=== PATIENT | female | born 1965 | race Caucasian/White ===

== ENCOUNTER 2018-03-23 17:37 | Emergency (ER) | payer OTHER ==
[2018-03-23] MEDS ORDERED: Adacel Vial IM ONE ×2 (18:18→18:26)
[2018-03-23] MEDS ORDERED: KEFLEX 500 MG PO ONE (18:20)
[2018-03-23] MEDS ORDERED: BACTRIM DS TABLET PO STA (18:20)
[2018-03-23] MEDS ORDERED: BACTRIM DS TABLET PO ONE (18:26)
[2018-03-23] MEDS ORDERED: KEFLEX 500 MG ONE (18:26)
--- NOTE | 2018-03-23 18:26 | ERPHSYRPT ---
- History of Present Illness Time Seen by Provider: 03/23/18 18:00 Source: patient Exam Limitations: no limitations Patient Subjective Stated Complaint: pt reports being stung by an insect while walking through high grass yesterday afternoon. reports she has a red raised area that is continually getting larger, pt is concerned it might be a brown recluse bite. Triage Nursing Assessment: pt is aox3, pupils perrl, resps easy and non labored , pt afebrile, radial pulses strong and equal, cap refill < 3 seconds. a red raised area noted to the left calf measuring 7cm x4 cm. skin is intact. a small white area is noted in the center of the wound. pedal pulses are strong and equal. pt sensation is intact. Physician History: Pt states, she sustained an insect bite to her left ankle yesterday at 4 PM, developed increasing redness and itching. She denies fever, chills, throat swelling, difficulty breathing, vomiting, other complaints. Her tetanus status in uncertain. Timing/Duration: yesterday Quality: burning, itchy, painful Severity: moderate Location: extremities (left lateral ankle) Possible Causes: insect bite Modifying Factors: Improves With: other (drawing salve to bite) Associated Symptoms: other (itchy eyes) Allergies/Adverse Reactions: codeine Allergy (Verified 04/25/16 16:52) Home Medications: No Home Meds [No Home Meds] 1 ea UD 04/25/16 [History] Hx Tetanus, Diphtheria Vaccination/Date Given: No Hx Influenza Vaccination/Date Given: No Hx Pneumococcal Vaccination/Date Given: No Immunizations Up to Date: Yes - Review of Systems Constitutional: No Symptoms Skin: Other (insect bite, cellulitis left lateral ankle) All Other Systems: Reviewed and Negative - Past Medical History Pertinent Past Medical History: No Neurological History: No Pertinent History - Past Surgical History Past Surgical History: Yes Female Surgical History: Section Other Surgical History: rt leg fx. nasal surgery - Social History Smoking Status: Current every day smoker Exposure to second hand smoke: No Drug Use: none Patient Lives Alone: No - Female History Hx Last Menstrual Period: joy Hx Now: No - Nursing Vital Signs Nursing Vital Signs: Initial Vital Signs Pulse Rate 78 03/23/18 18:03 Respiratory Rate 20 03/23/18 18:03 Blood Pressure 122/71 03/23/18 18:03 O2 Sat by Pulse Oximetry 98 03/23/18 18:03 Pain Scale Pain Intensity 2 - Physical Exam General Appearance: no apparent distress Eye Exam: eyes nml inspection Ears, Nose, Throat Exam: normal ENT inspection, pharynx normal, moist mucous membranes Neck Exam: normal inspection, non-tender, supple, No mass, No JVD Respiratory Exam: normal breath sounds, lungs clear, airway intact, No chest tenderness Cardiovascular Exam: regular rate/rhythm, normal heart sounds, normal peripheral pulses, capillary refill <2 sec, No murmur Gastrointestinal/Abdomen Exam: soft, normal bowel sounds, No tenderness Back Exam: normal inspection, No CVA tenderness Extremity Exam: normal inspection, No calf tenderness, No pedal edema Neurologic Exam: alert, oriented x 3, normal mood/affect Skin Exam: normal color, warm, dry, other (left lateral ankle: 5-6 cm, irregular redness, small pustule in the center, no discharge, necrosis, other lesions, no fluctuation. ), No rash, No petechiae Lymphatic Exam: No adenopathy SpO2 Interpretation: normal SpO2: 98 Oxygen Delivery: Room Air - Course Nursing assessment & vital signs reviewed: Yes Ordered Tests: Medication Summary Discontinued Medications Generic Name Dose Route Start Last Admin Trade Name Freq PRN Reason Stop Dose Admin Cephalexin HCl 500 mg 03/23/18 18:20 Keflex 500 Mg PO 03/23/18 18:21 STAT ONE Diphtheria/Tetanus/Acell Pertussis 0.5 ml 03/23/18 18:18 Adacel Vial IM 03/23/18 18:19 .ONCE ONE Trimethoprim/Sulfamethoxazole 1 tab 03/23/18 18:20 Bactrim Ds Tablet PO 03/23/18 18:21 STAT STA - Progress Progress: unchanged Progress Note: 03/23/18 18:25 Pt has been stable, no sign of difficulty breathing or severe pain, afebrile. I discussed the plan with her to discharge on antibiotics, and rest x 1-2 days with elevated leg, to apply cold compresses, and return if severe pain, swelling or fever> 102 F, otherwise to follow up with her doctor next week. Counseled pt/family regarding: diagnosis, need for follow-up - Departure Time of Disposition: 18:26 Departure Disposition: Home Clinical Impression: Cellulitis of left ankle Condition: Stable Critical Care Time: No Referrals: DOCTOR,NO FAMILY [Primary Care Provider] - Instructions: Insect Bites and Stings (DC), Cellulitis (Skin Infection), Adult (DC) Additional Instructions: Rest x 1-2 days with elevated leg, apply cold compresses to swelling, return if severe pain, swelling, fever> 102 F, or difficulty breathing! Follow up with your doctor in 2-3 days! Prescriptions: Cephalexin Mh 500 mg [Keflex 500 mg] 500 mg PO Q6H #40 capsule Sulfamethoxazole/Trimethoprim [Bactrim Ds Tablet] 1 each PO BID 10 Days #20 tablet
[2018-03-23 18:59] VITALS: BP 98/60; PULSE 71; O2SAT 97
== END 2018-03-23 18:59 | disposition home or self-care (01) ==
LOC: ED 17:37
DX: L03.116 Cellulitis of left lower limb (principal); W57.XXXA Bitten or stung by nonvenomous insect and other nonvenomous arthropods, initial encounter
CPT/HCPCS: 90471; 90715; 99283; A9270-GY

== ENCOUNTER 2018-09-30 17:32 | Emergency (ER) | payer OTHER ==
[2018-09-30] MEDS ORDERED: BABY ASPIRIN 81 MG CHEW PO ONE (17:43)
--- NOTE | 2018-09-30 17:43 | ERPHSYRPT ---
- History of Present Illness Time Seen by Provider: 09/30/18 17:38 Historian: patient Physician History: 53 y/o white female presents with 2 month h/o central substernal cp radiates to back. worsening. pt has a lot of anxiety issues. not on any meds. did not take asa. pt currently under severe stress and had stress for 15 years. denies soa. denies abd pain. Timing/Duration: intermittent (for 2 months.), worse Location: substernal, central Chest Pain Radiation: back Severity of Pain-Max: moderate Severity of Pain-Current: moderate Modifying Factors: Improves With: nothing, other (did not take any thing) Associated Symptoms: No nausea, No vomiting, No palpitations, No shortness of breath, No hurts to breathe Prior Chest Pain/Cardiac Workup: no prior chest pain Nitro Today/Relief: no nitro taken today, provided by ED Aspirin Treatment Today: no aspirin today, provided by ED Allergies/Adverse Reactions: codeine Allergy (Verified 09/30/18 18:34) Home Medications: No Reportable Medications [No Reported Medications] 09/30/18 [History] Hx Tetanus, Diphtheria Vaccination/Date Given: No Hx Influenza Vaccination/Date Given: No Hx Pneumococcal Vaccination/Date Given: No - Review of Systems Constitutional: No Symptoms Eyes: No Symptoms Ears, Nose, & Throat: No Symptoms Respiratory: No Symptoms, No Cough, No Dyspnea, No Stridor, No Wheezing Cardiac: Chest Pain, No Palpitations, No Syncope Abdominal/Gastrointestinal: No Symptoms Genitourinary Symptoms: No Symptoms Musculoskeletal: No Symptoms Skin: No Symptoms Neurological: No Symptoms Psychological: Anxiety Endocrine: No Symptoms Hematologic/Lymphatic: No Symptoms Immunological/Allergic: No Symptoms All Other Systems: Reviewed and Negative - Past Medical History Pertinent Past Medical History: Yes Neurological History: No Pertinent History ENT History: No Pertinent History Cardiac History: No Pertinent History Respiratory History: No Pertinent History Endocrine Medical History: No Pertinent History Musculoskeletal History: No Pertinent History GI Medical History: No Pertinent History History: No Pertinent History Psycho-Social History: No Pertinent History Female Reproductive Disorders: No Pertinent History - Past Surgical History Past Surgical History: Yes Neuro Surgical History: No Pertinent History Cardiac: No Pertinent History Respiratory: No Pertinent History Gastrointestinal: No Pertinent History Genitourinary: No Pertinent History Musculoskeletal: No Pertinent History Female Surgical History: Section Other Surgical History: rt leg fx. nasal surgery - Social History Smoking Status: Current every day smoker Exposure to second hand smoke: No Drug Use: none Patient Lives Alone: No - Nursing Vital Signs Nursing Vital Signs: Initial Vital Signs Temperature 97.9 F 09/30/18 17:44 Pulse Rate 72 09/30/18 17:44 Respiratory Rate 16 09/30/18 17:44 Blood Pressure 115/71 09/30/18 17:44 O2 Sat by Pulse Oximetry 100 09/30/18 17:44 Pain Scale Pain Intensity 8 - Physical Exam General Appearance: mild distress, alert, anxiety Eye Exam: PERRL/EOMI Ears, Nose, Throat Exam: normal ENT inspection, moist mucous membranes Neck Exam: normal inspection, non-tender, supple, full range of motion Respiratory Exam: normal breath sounds, chest tenderness, lungs clear, airway intact, No respiratory distress, No accessory muscle use, No rhonchi, No wheezing, No stridor Cardiovascular Exam: regular rate/rhythm, normal heart sounds, normal peripheral pulses Gastrointestinal/Abdomen Exam: soft, normal bowel sounds, No tenderness, No guarding, No rebound Pelvic Exam: not done Rectal Exam: not done Back Exam: normal inspection, normal range of motion, No CVA tenderness, No vertebral tenderness Extremity Exam: normal inspection, normal range of motion, pelvis stable Neurologic Exam: alert, oriented x 3, cooperative, 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 Skin Exam: normal color, warm, dry Lymphatic Exam: No adenopathy SpO2 Interpretation: normal - Course Nursing assessment & vital signs reviewed: Yes EKG Interpreted by Me: RATE (67), Sinus Rhythm, NORMAL AXIS, NORMAL INTERVALS, NORMAL QRS, NORMAL ST-T, Other (no comparison ekg) Ordered Tests: Active Orders 24 hr Category Date Time Status Marketing Communications Coordinator STAT Care 09/30/18 17:45 Active EKG-ER Only STAT Care 09/30/18 17:43 Active IV Insertion STAT Care 09/30/18 17:43 Active Pulse Oximetry (ED) STAT Care 09/30/18 17:43 Active CHEST 1 VIEW (PORTABLE) Stat Exams 09/30/18 17:45 Taken CBC W DIFF Stat Lab 09/30/18 17:40 Completed CMP Stat Lab 09/30/18 17:40 Completed D-DIMER QUANTITATION Stat Lab 09/30/18 17:40 Completed NT PRO BNP Stat Lab 09/30/18 17:40 Completed PROTIME WITH INR Stat Lab 09/30/18 17:40 Completed TROPONIN Q3H Lab 09/30/18 17:40 Completed TROPONIN Q3H Lab 09/30/18 20:45 Ordered TROPONIN Q3H Lab 09/30/18 23:45 Ordered TROPONIN Q3H Lab 10/01/18 02:45 Ordered TROPONIN Q3H Lab 10/01/18 05:45 Ordered Medication Summary Discontinued Medications Generic Name Dose Route Start Last Admin Trade Name Mat PRN Reason Stop Dose Admin Aspirin 324 mg 09/30/18 17:43 09/30/18 17:55 Baby Aspirin 81 Mg Chew PO 09/30/18 17:44 324 mg STAT ONE Administration Lab/Rad Data: Laboratory Result Diagrams 09/30/18 17:40 09/30/18 17:40 Laboratory Results 09/30/18 09/30/18 09/30/18 Range/Units 17:40 17:40 17:40 WBC (4.0-10.5) K/mm3 RBC (4.1-5.4) M/mm3 Hgb (12.0-16.0) gm/dl Hct (35-47) % MCV (78-100) fl MCH (26-32) pg MCHC (32-36) g/dl RDW (11.5-14.0) % Plt Count (150-450) K/mm3 MPV (6-9.5) fl Gran % (36.0-66.0) % Eos # (Auto) (0-0.5) Absolute Lymphs (auto) (1.0-4.6) Absolute Monos (auto) (0.0-1.3) Lymphocytes % (24.0-44.0) % Monocytes % (0.0-12.0) % Eosinophils % (0.00-5.0) % Basophils % (0.0-0.4) % Absolute Granulocytes (1.4-6.9) Basophils # (0-0.4) PT 11.2 (9.95-12.35) SECONDS INR 0.96 (0.8-3.0) D-Dimer < 215 L (215-500) ng/mL Sodium 143 (137-145) mmol/L Potassium 3.7 (3.5-5.1) mmol/L Chloride 104 (98-107) mmol/L Carbon Dioxide 30 (22-30) mmol/L Anion Gap 12.4 (5-15) MEQ/L BUN 17 (7-17) mg/dL Creatinine 0.87 (0.52-1.04) mg/dL Estimated GFR > 60.0 ML/MIN Glucose 85 (74-106) mg/dL Calcium 9.7 (8.4-10.2) mg/dL Total Bilirubin 0.40 (0.2-1.3) mg/dL AST 21 (14-36) U/L ALT 22 (0-35) U/L Alkaline Phosphatase 63 (38-126) U/L Troponin I < 0.012 (0.000-0.034) ng/mL NT-Pro-B Natriuret Pep 18.0 (0-900) pg/mL Serum Total Protein 7.5 (6.3-8.2) g/dL Albumin 4.6 (3.5-5.0) g/dL 09/30/18 Range/Units 17:40 WBC 7.3 (4.0-10.5) K/mm3 RBC 5.25 (4.1-5.4) M/mm3 Hgb 15.3 (12.0-16.0) gm/dl Hct 47.4 H (35-47) % MCV 90.3 (78-100) fl MCH 29.1 (26-32) pg MCHC 32.3 (32-36) g/dl RDW 13.7 (11.5-14.0) % Plt Count 224 (150-450) K/mm3 MPV 11.4 H (6-9.5) fl Gran % 57.6 (36.0-66.0) % Eos # (Auto) 0.27 (0-0.5) Absolute Lymphs (auto) 2.26 (1.0-4.6) Absolute Monos (auto) 0.50 (0.0-1.3) Lymphocytes % 31.1 (24.0-44.0) % Monocytes % 6.9 (0.0-12.0) % Eosinophils % 3.7 (0.00-5.0) % Basophils % 0.7 (0.0-0.4) % Absolute Granulocytes 4.18 (1.4-6.9) Basophils # 0.05 (0-0.4) PT (9.95-12.35) SECONDS INR (0.8-3.0) D-Dimer (215-500) ng/mL Sodium (137-145) mmol/L Potassium (3.5-5.1) mmol/L Chloride (98-107) mmol/L Carbon Dioxide (22-30) mmol/L Anion Gap (5-15) MEQ/L BUN (7-17) mg/dL Creatinine (0.52-1.04) mg/dL Estimated GFR ML/MIN Glucose (74-106) mg/dL Calcium (8.4-10.2) mg/dL Total Bilirubin (0.2-1.3) mg/dL AST (14-36) U/L ALT (0-35) U/L Alkaline Phosphatase (38-126) U/L Troponin I (0.000-0.034) ng/mL NT-Pro-B Natriuret Pep (0-900) pg/mL Serum Total Protein (6.3-8.2) g/dL Albumin (3.5-5.0) g/dL - Progress Progress: unchanged Air Movement: good Progress Note: 09/30/18 19:09 cxr-no acute process. Blood Culture(s) Obtained: No Antibiotics given: No Counseled pt/family regarding: lab results, diagnosis, need for follow-up, rad results - Departure Time of Disposition: 19:10 Departure Disposition: Home Clinical Impression: Chest pain, Anxiety, Stress Condition: Stable Critical Care Time: No Referrals: DOCTOR,NO FAMILY [Primary Care Provider] - Additional Instructions: follow up with primary doctor for further management of your anxiety/stress issues and chest pain issues.
[2018-09-30 18:00] LABS: BASOPHIL % 0.7 % (0.0-0.4); Basophil (Absolute #) 0.05 (0-0.4); Eosinophil % 3.7 % (0.00-5.0); Eosinophil (Absolute #) 0.27 (0-0.5); Granulocyte Absolute (ANC) 4.18 (1.4-6.9); Granulocytes % 57.6 % (36.0-66.0); Hematocrit 47.4 % (35-47); Hemoglobin 15.3 gm/dl (12.0-16.0); Lymphocyte (Absolute #) 2.26 (1.0-4.6); Lymphocytes % 31.1 % (24.0-44.0); Mean Cell Volume 90.3 fl (78-100); Mean Corpuscular Hemoglobin 29.1 pg (26-32); Mean Corpuscular Hgb Concent. 32.3 g/dl (32-36); Mean Platelet Volume 11.4 fl (6-9.5); Monocytes % 6.9 % (0.0-12.0); Platelet Count 224 K/mm3 (150-450); Red Blood Count 5.25 M/mm3 (4.1-5.4); Red Cell Distribution Width 13.7 % (11.5-14.0); White Blood Count 7.3 K/mm3 (4.0-10.5)
[2018-09-30 18:12] LABS: INR 0.96 (0.8-3.0)
[2018-09-30 18:23] LABS: D-DIMER QUANTITATION < 215 ng/mL (215-500)
[2018-09-30 18:26] LABS: ALBUMIN 4.6 g/dL (3.5-5.0); ALKALINE PHOSPHATASE 63 U/L (38-126); ANION GAP 12.4 MEQ/L (5-15); BLOOD UREA NITROGEN 17 mg/dL (7-17); CHLORIDE 104 mmol/L (98-107); Calcium 9.7 mg/dL (8.4-10.2); Carbon Dioxide 30 mmol/L (22-30); Creatinine 1 0.87 mg/dL (0.52-1.04); Glucose 85 mg/dL (74-106); Potassium 3.7 mmol/L (3.5-5.1); SGOT/AST 21 U/L (14-36); SGPT/ALT 22 U/L (0-35); SODIUM 143 mmol/L (137-145); Total Protein 7.5 g/dL (6.3-8.2)
[2018-09-30 19:20] VITALS: BP 97/63; PULSE 63; O2SAT 99
--- NOTE | 2018-09-30 22:21 | XRAY ---
Indication: Chest pain. Comparison: None Portable chest demonstrates normal heart and lungs with a few incidental calcified granulomas. Bony thorax intact with mild degenerative changes. Nothing acute.
== END 2018-09-30 19:24 | disposition home or self-care (01) ==
LOC: ED 17:32
DX: R07.9 Chest pain, unspecified (principal); F41.9 Anxiety disorder, unspecified; Z73.3 Stress, not elsewhere classified
CPT/HCPCS: 36000; 36415; 71045; 80053; 83880; 84484; 85025; 85379; 85610; 93005; 93041; 99284; A9270-GY

== ENCOUNTER 2019-03-28 01:59 | Emergency (ER) | payer MEDICAID, OTHER ==
[2019-03-28] MEDS ORDERED: Sodium Chloride 0.9% 1000 ML 1,000 ML IV STA (02:36)
[2019-03-28] MEDS ORDERED: TORAdol 30 mg Injection IV ONE (02:36)
[2019-03-28] MEDS ORDERED: TORAdol 30 mg Injection ONE (02:40)
[2019-03-28] MEDS ORDERED: Sodium Chloride 0.9% 1000 ML 1,000 ML ONE (02:40)
--- NOTE | 2019-03-28 02:41 | ERPHSYRPT ---
- History of Present Illness Time Seen by Provider: 03/28/19 02:28 Source: patient Exam Limitations: no limitations Patient Subjective Stated Complaint: pt c/o Left flank pain X1 week, 8/10 states has not noticed any changes in urine or elimination. states diffuse pain across lower abdomen. states also nauseous but no vomiting. 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 Triage Nursing Assessment: A/O x4, speech clear, c/o pain 8/10 in left lower back/flank area. pt presents with slight stiff posture. resp easy, lungs CTA. has not taken any medication [employer] Physician History: 54-year-old white female with history of kidney stones in the past she is here complaining of pain in her left flank described as sharp stabbing symptoms going on for a week she denies any dysuria hematuria She also states that she has pain in her left shoulder worse with moving she states that she was lifting something heavy 3 weeks ago and she has been having pain in that area. She has no fevers no nausea no vomiting. Past medical history includes kidney stones past surgical history includes kidney stones removed and ORIF of the right leg. . Timing/Duration: other (left shoulder pain for 3 weeks, left flank pain for one week) Severity: moderate Modifying Factors: Improves With: other (shoulders worse with movement) Associated Symptoms: No nausea, No vomiting, No abdominal pain, No shortness of breath, No heartburn, No diaphoresis, No cough, No chills, No chest pain, No fever, No headaches, No loss of appetite, No malaise, No rash, No syncope, No seizure, No weakness Allergies/Adverse Reactions: codeine Allergy (Verified 09/30/18 18:34) Hx Tetanus, Diphtheria Vaccination/Date Given: Yes Hx Influenza Vaccination/Date Given: No Hx Pneumococcal Vaccination/Date Given: No Immunizations Up to Date: Yes - Review of Systems Constitutional: No Fever, No Chills Eyes: No Symptoms Ears, Nose, & Throat: No Symptoms Respiratory: No Cough, No Dyspnea Cardiac: No Chest Pain, No Edema, No Syncope Abdominal/Gastrointestinal: No Abdominal Pain, No Nausea, No Vomiting, No Diarrhea Genitourinary Symptoms: Flank Pain (left flank pain) Musculoskeletal: Injury (patient states she injured her left shoulder lifting something 3 weeks ago), Other (left shoulder pain worse with movement) Skin: No Rash Neurological: No Dizziness, No Focal Weakness, No Sensory Changes Psychological: No Symptoms Endocrine: No Symptoms All Other Systems: Reviewed and Negative - Past Medical History Pertinent Past Medical History: Yes Neurological History: No Pertinent History ENT History: No Pertinent History Cardiac History: No Pertinent History Respiratory History: No Pertinent History Endocrine Medical History: No Pertinent History Musculoskeletal History: No Pertinent History GI Medical History: No Pertinent History History: No Pertinent History Psycho-Social History: No Pertinent History Female Reproductive Disorders: No Pertinent History Other Medical History: KIDNEY STONES - Past Surgical History Past Surgical History: Yes Neuro Surgical History: No Pertinent History Cardiac: No Pertinent History Respiratory: No Pertinent History Gastrointestinal: No Pertinent History Genitourinary: No Pertinent History Musculoskeletal: No Pertinent History Female Surgical History: Section Other Surgical History: rt leg fx. nasal surgery - Social History Smoking Status: Current every day smoker How long have you smoked: 40 Exposure to second hand smoke: No Drug Use: none Patient Lives Alone: No - Female History Hx Last Menstrual Period: menopause Hx Now: No - Nursing Vital Signs Nursing Vital Signs: Initial Vital Signs Temperature 98.3 F 03/28/19 02:00 Pulse Rate 66 03/28/19 02:00 Respiratory Rate 16 03/28/19 02:00 Blood Pressure 126/73 03/28/19 02:00 O2 Sat by Pulse Oximetry 100 03/28/19 02:00 Pain Scale Pain Intensity 4 - Physical Exam General Appearance: mild distress, alert Eye Exam: PERRL/EOMI, eyes nml inspection Ears, Nose, Throat Exam: normal ENT inspection, TMs normal, pharynx normal, moist mucous membranes Neck Exam: normal inspection, non-tender, supple, full range of motion Respiratory Exam: normal breath sounds, lungs clear, No respiratory distress Cardiovascular Exam: regular rate/rhythm, normal heart sounds, normal peripheral pulses, capillary refill <2 sec Gastrointestinal/Abdomen Exam: soft, normal bowel sounds, No tenderness Back Exam: CVA tenderness (left flank tenderness) Extremity Exam: other (pain left anterior shoulder with external rotation able to touch her opposite shoulder anteriorly) Neurologic Exam: alert, oriented x 3, cooperative, reporting consultant II-XII nml as tested, normal mood/affect, nml cerebellar function, nml station & gait, sensation nml, No motor deficits Skin Exam: normal color, warm, dry, No rash Lymphatic Exam: No adenopathy SpO2 Interpretation: normal (100%) SpO2: 100 - Course Nursing assessment & vital signs reviewed: Yes - Radiology Exams Left Shoulder X-ray Interpretation: Interpreted by me, Negative, No Fracture, No Subluxation - CT Exams Abdomen/Pelvis CT Interpretation: Tele-radiologist Report (no urolithiasis) Ordered Tests: Active Orders 24 hr Category Date Time Status IV Insertion STAT Care 03/28/19 02:36 Active ABDOMEN AND PELVIS W/0 CONTRAS [CT] Stat Exams 03/28/19 03:42 Taken SHOULDER Stat Exams 03/28/19 03:43 Taken CBC W DIFF Stat Lab 03/28/19 02:46 Completed CMP Stat Lab 03/28/19 02:46 Completed HCG QUALITATIVE,SERUM Stat Lab 03/28/19 02:46 Completed UA W/RFX UR CULTURE Stat Lab 03/28/19 03:45 Completed Urine Triage Profile Stat Lab 03/28/19 03:45 Completed Medication Summary Discontinued Medications Generic Name Dose Route Start Last Admin Trade Name Sauloq PRN Reason Stop Dose Admin Sodium Chloride 1,000 mls @ 999 mls/hr 03/28/19 02:36 03/28/19 04:31 Sodium Chloride 0.9% 1000 Ml IV 03/28/19 03:36 Infused .Q1H1M STA Infusion Sodium Chloride Confirm 03/28/19 02:40 Sodium Chloride 0.9% 1000 Ml Administered 03/28/19 02:41 Dose 1,000 mls @ ud .ROUTE .STK-MED ONE Ketorolac Tromethamine 30 mg 03/28/19 02:36 03/28/19 02:45 Toradol 30 Mg Injection IV 03/28/19 02:37 30 mg STAT ONE Administration Ketorolac Tromethamine Confirm 03/28/19 02:40 Toradol 30 Mg Injection Administered 03/28/19 02:41 Dose 30 mg .ROUTE .STK-MED ONE Lab/Rad Data: Laboratory Result Diagrams 03/28/19 02:46 03/28/19 02:46 Laboratory Results 03/28/19 03/28/19 03/28/19 Range/Units 03:45 03:45 02:46 WBC (4.0-10.5) K/mm3 RBC (4.1-5.4) M/mm3 Hgb (12.0-16.0) gm/dl Hct (35-47) % MCV (78-100) fl MCH (26-32) pg MCHC (32-36) g/dl RDW (11.5-14.0) % Plt Count (150-450) K/mm3 MPV (6-9.5) fl Gran % (36.0-66.0) % Eos # (Auto) (0-0.5) Absolute Lymphs (auto) (1.0-4.6) Absolute Monos (auto) (0.0-1.3) Lymphocytes % (24.0-44.0) % Monocytes % (0.0-12.0) % Eosinophils % (0.00-5.0) % Basophils % (0.0-0.4) % Absolute Granulocytes (1.4-6.9) Basophils # (0-0.4) Sodium (137-145) mmol/L Potassium (3.5-5.1) mmol/L Chloride (98-107) mmol/L Carbon Dioxide (22-30) mmol/L Anion Gap (5-15) MEQ/L BUN (7-17) mg/dL Creatinine (0.52-1.04) mg/dL Estimated GFR ML/MIN Glucose (74-106) mg/dL Calcium (8.4-10.2) mg/dL Total Bilirubin (0.2-1.3) mg/dL AST (14-36) U/L ALT (0-35) U/L Alkaline Phosphatase (38-126) U/L Serum Total Protein (6.3-8.2) g/dL Albumin (3.5-5.0) g/dL Serum , Qual NEGATIVE (Negative) Urine Color YELLOW (YELLOW) Urine Appearance CLEAR (CLEAR) Urine pH 5.0 (5-6) Ur Specific [place] 1.019 (1.005-1.025) Urine Protein NEGATIVE (Negative) Urine Ketones NEGATIVE (NEGATIVE) Urine Blood NEGATIVE (0-5) El/ul Urine Nitrite NEGATIVE (NEGATIVE) Urine Bilirubin NEGATIVE (NEGATIVE) Urine Urobilinogen NEGATIVE (0-1) mg/dL Ur Leukocyte Esterase NEGATIVE (NEGATIVE) Urine WBC (Auto) 6-10 (0-5) /HPF Urine RBC (Auto) NONE SEEN (0-2) /HPF U Epithel Cells (Auto) RARE (FEW) /HPF Urine Bacteria (Auto) NONE SEEN (NEGATIVE) /HPF Calcium Oxalate Crystal 0-2 (NEGATIVE) /HPF Urine Mucus (Auto) SLIGHT (NEGATIVE) /HPF Urine Culture Reflexed NO (NO) Urine Glucose NEGATIVE (NEGATIVE) mg/dL Urine Opiates Level NEGATIVE (NEGATIVE) Ur Methadone NEGATIVE (NEGATIVE) Urine Barbiturates NEGATIVE (NEGATIVE) Ur Phencyclidine (PCP) NEGATIVE (NEGATIVE) Urine Amphetamine NEGATIVE (NEGATIVE) U Benzodiazepine Level NEGATIVE (NEGATIVE) Urine Cocaine NEGATIVE (NEGATIVE) Urine Marijuana (THC) NEGATIVE (NEGATIVE) 03/28/19 03/28/19 Range/Units 02:46 02:46 WBC 7.1 (4.0-10.5) K/mm3 RBC 5.08 (4.1-5.4) M/mm3 Hgb 15.0 (12.0-16.0) gm/dl Hct 45.6 (35-47) % MCV 89.8 (78-100) fl MCH 29.5 (26-32) pg MCHC 32.9 (32-36) g/dl RDW 13.9 (11.5-14.0) % Plt Count 235 (150-450) K/mm3 MPV 11.1 H (6-9.5) fl Gran % 59.4 (36.0-66.0) % Eos # (Auto) 0.26 (0-0.5) Absolute Lymphs (auto) 1.87 (1.0-4.6) Absolute Monos (auto) 0.70 (0.0-1.3) Lymphocytes % 26.4 (24.0-44.0) % Monocytes % 9.9 (0.0-12.0) % Eosinophils % 3.7 (0.00-5.0) % Basophils % 0.6 (0.0-0.4) % Absolute Granulocytes 4.22 (1.4-6.9) Basophils # 0.04 (0-0.4) Sodium 142 (137-145) mmol/L Potassium 4.0 (3.5-5.1) mmol/L Chloride 106 (98-107) mmol/L Carbon Dioxide 29 (22-30) mmol/L Anion Gap 10.6 (5-15) MEQ/L BUN 16 (7-17) mg/dL Creatinine 0.71 (0.52-1.04) mg/dL Estimated GFR > 60.0 ML/MIN Glucose 106 (74-106) mg/dL Calcium 9.7 (8.4-10.2) mg/dL Total Bilirubin 0.50 (0.2-1.3) mg/dL AST 26 (14-36) U/L ALT 20 (0-35) U/L Alkaline Phosphatase 65 (38-126) U/L Serum Total Protein 7.1 (6.3-8.2) g/dL Albumin 4.2 (3.5-5.0) g/dL Serum , Qual (Negative) Urine Color (YELLOW) Urine Appearance (CLEAR) Urine pH (5-6) Ur Specific [place] (1.005-1.025) Urine Protein (Negative) Urine Ketones (NEGATIVE) Urine Blood (0-5) El/ul Urine Nitrite (NEGATIVE) Urine Bilirubin (NEGATIVE) Urine Urobilinogen (0-1) mg/dL Ur Leukocyte Esterase (NEGATIVE) Urine WBC (Auto) (0-5) /HPF Urine RBC (Auto) (0-2) /HPF U Epithel Cells (Auto) (FEW) /HPF Urine Bacteria (Auto) (NEGATIVE) /HPF Calcium Oxalate Crystal (NEGATIVE) /HPF Urine Mucus (Auto) (NEGATIVE) /HPF Urine Culture Reflexed (NO) Urine Glucose (NEGATIVE) mg/dL Urine Opiates Level (NEGATIVE) Ur Methadone (NEGATIVE) Urine Barbiturates (NEGATIVE) Ur Phencyclidine (PCP) (NEGATIVE) Urine Amphetamine (NEGATIVE) U Benzodiazepine Level (NEGATIVE) Urine Cocaine (NEGATIVE) Urine Marijuana (THC) (NEGATIVE) - Progress Progress: improved Progress Note: 03/28/19 06:10 Patient improved and sleeping after receiving Toradol injection. X-ray left shoulder (my read) no fractures no subluxation. CT abdomen and pelvis without contrast no urolithiasis. Patient's CBC essentially normal urinalysis normal chemistry normal hCG is normal urine drug screen negative. Patient states she still has pain in her left arm when she reaches towards the anterior left shoulder. Will go ahead and sling her left arm she can use a sling 48-72 hours. Will write for Naprosyn for the patient. Patient has been advised to followup with her family in view of the fact that she's had 3 weeks of left shoulder pain. The patient does not want any narcotic analgesia. Will have patient off work today and tomorrow. - Departure Departure Disposition: Home Clinical Impression: Left flank pain Left shoulder pain Qualifiers: Chronicity: acute Qualified Code(s): M25.512 - Pain in left shoulder Left shoulder strain Qualifiers: Encounter type: initial encounter Qualified Code(s): S46.912A - Strain of unspecified muscle, fascia and tendon at shoulder and upper arm level, left arm , initial encounter Condition: Fair Critical Care Time: No Referrals: DOCTOR,NO FAMILY [Primary Care Provider] - Additional Instructions: Return home. Plenty of fluids. Naprosyn 500 mg orally twice a day with food as needed for pain. Wear sling 48-72 hours. Ice to left shoulder 24-48 hours. Followup with your family (tripp). Return for acute distress or for severe symptoms. Your x-rays have been preliminarily read they will be reread later today you'll be contacted if any discrepancies are noted. Prescriptions: Naproxen 500 mg [Naprosyn 500 MG] 500 mg PO BIDPRN PRN #10 tablet PRN Reason: Pain
[2019-03-28 02:50] LABS: BASOPHIL % 0.6 % (0.0-0.4); Basophil (Absolute #) 0.04 (0-0.4); Eosinophil % 3.7 % (0.00-5.0); Eosinophil (Absolute #) 0.26 (0-0.5); Granulocyte Absolute (ANC) 4.22 (1.4-6.9); Granulocytes % 59.4 % (36.0-66.0); Hematocrit 45.6 % (35-47); Lymphocyte (Absolute #) 1.87 (1.0-4.6); Lymphocytes % 26.4 % (24.0-44.0); Mean Cell Volume 89.8 fl (78-100); Mean Corpuscular Hemoglobin 29.5 pg (26-32); Mean Corpuscular Hgb Concent. 32.9 g/dl (32-36); Mean Platelet Volume 11.1 fl (6-9.5); Monocytes % 9.9 % (0.0-12.0); Platelet Count 235 K/mm3 (150-450); Red Blood Count 5.08 M/mm3 (4.1-5.4); Red Cell Distribution Width 13.9 % (11.5-14.0); White Blood Count 7.1 K/mm3 (4.0-10.5)
[2019-03-28 03:01] LABS: ALBUMIN 4.2 g/dL (3.5-5.0); ALKALINE PHOSPHATASE 65 U/L (38-126); ANION GAP 10.6 MEQ/L (5-15); BLOOD UREA NITROGEN 16 mg/dL (7-17); CHLORIDE 106 mmol/L (98-107); Calcium 9.7 mg/dL (8.4-10.2); Carbon Dioxide 29 mmol/L (22-30); Creatinine 1 0.71 mg/dL (0.52-1.04); Glucose 106 mg/dL (74-106); SGOT/AST 26 U/L (14-36); SGPT/ALT 20 U/L (0-35); SODIUM 142 mmol/L (137-145); Total Protein 7.1 g/dL (6.3-8.2)
[2019-03-28 03:54] LABS: Appearance CLEAR (CLEAR); Bacteria NONE SEEN /HPF (NEGATIVE); Bilirubin NEGATIVE (NEGATIVE); Blood NEGATIVE Ery/ul (0-5); Calcium Oxalate Crystals 0-2 /HPF (NEGATIVE); Epithelial Cells RARE /HPF (FEW); Glucose NEGATIVE (NEGATIVE); Ketones NEGATIVE (NEGATIVE); Leukocyte Esterase NEGATIVE (NEGATIVE); Mucus SLIGHT /HPF (NEGATIVE); Nitrite NEGATIVE (NEGATIVE); Protein,Urine Dip NEGATIVE (Negative); RBC NONE SEEN /HPF (0-2); Specific Gravity 1.019 (1.005-1.025); Urobilinogen NEGATIVE mg/dL (0-1)
[2019-03-28 04:05] LABS: Amphetamine,Urine NEGATIVE (NEGATIVE); Barbiturate,Urine NEGATIVE (NEGATIVE); Benzodiazepine,Urine NEGATIVE (NEGATIVE); Cocaine,Urine NEGATIVE (NEGATIVE); Methadone,Urine NEGATIVE (NEGATIVE); Opiate,Urine NEGATIVE (NEGATIVE); PCP,Urine NEGATIVE (NEGATIVE); THC,Urine NEGATIVE (NEGATIVE)
[2019-03-28 06:33] VITALS: BP 94/65; PULSE 62; O2SAT 99
--- NOTE | 2019-03-28 09:21 | XRAY ---
Indication: Pain following injury. Comparison: April 25, 2016. 3 views of the left shoulder again demonstrates mild AC degenerative arthropathy with new mild dextroscoliosis centered at T7. No other bony, articular, or soft tissue abnormalities.
--- NOTE | 2019-03-28 09:25 | XRAY ---
Indication: Left flank pain. Multiple contiguous axial images obtained through the abdomen and pelvis without contrast as ordered. Comparison: CT renal stone study February 28, 2010. Lung bases again demonstrates tiny right posterior gutter calcified granulomas versus pleural plaquing. No infiltrate or effusion. Heart is not enlarged. Stomach distended with food/fluid. Noncontrasted stomach and bowel loops appear nonobstructed. Normal appendix. There is now mild diffuse scattered colonic fecal debris throughout. No free fluid/air. Gallbladder contracted without gallstones. Remaining liver, pancreas, spleen, adrenal glands, kidneys, ureters, bladder, uterus, and aorta appear unremarkable for noncontrast exam. Osseous structures intact. No ventral or inguinal hernias. Impression: 1. New fecal stasis without obstruction. 2. Stable right posterior gutter calcified granulomas versus pleural plaquing. 3. Remaining CT abdomen/pelvis without contrast exam is negative. Comment: Preliminary interpretation was made by [facility]. No critical discrepancy. CT DI 12.20
== END 2019-03-28 06:31 | disposition home or self-care (01) ==
LOC: ED 01:59
DX: S46.912A Strain of unspecified muscle, fascia and tendon at shoulder and upper arm level, left arm, initial encounter (principal)
CPT/HCPCS: 36415; 73030; 74176; 80053; 80307; 81001; 81025; 85025; 96360; 96374; 99284; J1885

== ENCOUNTER 2019-05-09 23:34 | Emergency (ER) | payer MEDICAID ==
[2019-05-10 00:40] LABS: BASOPHIL % 0.6 % (0.0-0.4); Basophil (Absolute #) 0.05 (0-0.4); Eosinophil % 2.7 % (0.00-5.0); Eosinophil (Absolute #) 0.22 (0-0.5); Granulocyte Absolute (ANC) 4.85 (1.4-6.9); Granulocytes % 60.5 % (36.0-66.0); Hematocrit 46.2 % (35-47); Hemoglobin 15.4 gm/dl (12.0-16.0); Lymphocyte (Absolute #) 2.15 (1.0-4.6); Lymphocytes % 26.8 % (24.0-44.0); Mean Cell Volume 88.7 fl (78-100); Mean Corpuscular Hemoglobin 29.6 pg (26-32); Mean Corpuscular Hgb Concent. 33.3 g/dl (32-36); Monocyte (Absolute #) 0.75 (0.0-1.3); Monocytes % 9.4 % (0.0-12.0); Platelet Count 221 K/mm3 (150-450); Red Blood Count 5.21 M/mm3 (4.1-5.4); Red Cell Distribution Width 13.8 % (11.5-14.0)
[2019-05-10 00:55] LABS: ALBUMIN 4.3 g/dL (3.5-5.0); ALKALINE PHOSPHATASE 71 U/L (38-126); ANION GAP 8.6 MEQ/L (5-15); BLOOD UREA NITROGEN 16 mg/dL (7-17); CHLORIDE 106 mmol/L (98-107); Calcium 9.8 mg/dL (8.4-10.2); Carbon Dioxide 29 mmol/L (22-30); Glucose 95 mg/dL (74-106); SGOT/AST 21 U/L (14-36); SGPT/ALT 18 U/L (0-35); SODIUM 140 mmol/L (137-145); Total Protein 7.3 g/dL (6.3-8.2)
[2019-05-10 01:03] LABS: ACETAMINOPHEN < 10 ug/ml (10-30); ETHYL ALCOHOL < 10 mg/dL (0-10); SALICYLATE < 1.0 mg/dL (2-20)
--- NOTE | 2019-05-10 01:31 | ERPHSYRPT ---
- History of Present Illness Time Seen by Provider: 05/09/19 23:45 Source: patient Patient Subjective Stated Complaint: pt states, "I have alot of stress going on right now in my life. My chest hurts, I have anxiety, I have sleep, my rt hip hurts and my arms hurt". Triage Nursing Assessment: pt alert and oriented, tearful. Pt c/o chest pain but thinks its all stress and anxiety related. Lungs clear, heart tones reg, abd soft with active bs x4 quad, nontender. Pt rates chest pain and rt arm and rt leg pain a 6 on 0-10 scale. No distress noted. Pt very depressed and anxious. Physician History: 54 y/o white female presents with anxiety, stress, depression and home issues. pt does not want to return to her mother's home where she has been staying. she adamantly denies suicidal or homicidal thoughts or issues. pt does complain of cp. Timing/Duration: worse, other (chronic over 15 years) Severity of Symptoms-Max: mild Severity of Symptoms-Current: mild Context related to: work, living circumstances Suicidal thoughts: other (no) Previous symptoms: same symptoms as today Allergies/Adverse Reactions: latex Allergy (Intermediate, Verified 05/10/19 00:07) codeine Allergy (Verified 09/30/18 18:34) Hx Tetanus, Diphtheria Vaccination/Date Given: Yes Hx Influenza Vaccination/Date Given: No Hx Pneumococcal Vaccination/Date Given: No Immunizations Up to Date: Yes - Past Medical History Pertinent Past Medical History: Yes Neurological History: No Pertinent History ENT History: No Pertinent History Cardiac History: No Pertinent History Respiratory History: Bronchitis Endocrine Medical History: No Pertinent History Musculoskeletal History: No Pertinent History GI Medical History: No Pertinent History History: Other Psycho-Social History: No Pertinent History Female Reproductive Disorders: No Pertinent History Other Medical History: KIDNEY STONES - Past Surgical History Past Surgical History: Yes Neuro Surgical History: No Pertinent History Cardiac: No Pertinent History Respiratory: No Pertinent History Gastrointestinal: No Pertinent History Genitourinary: No Pertinent History Musculoskeletal: Orthopedic Surgery Female Surgical History: Section Other Surgical History: rt leg fx x2. nasal surgery - Social History Smoking Status: Current every day smoker How long have you smoked: 40 yrs Exposure to second hand smoke: Yes Drug Use: none Patient Lives Alone: No - Female History Hx Last Menstrual Period: years ago - Review of Systems Constitutional: No Symptoms Eyes: No Symptoms Ears, Nose, & Throat: No Symptoms Respiratory: No Symptoms Cardiac: Chest Pain Abdominal/Gastrointestinal: No Symptoms Genitourinary Symptoms: No Symptoms Musculoskeletal: No Symptoms Skin: No Symptoms Neurological: No Symptoms Psychological: Anxiety, Depression, No Suicidal Ideations, No Homicidal Ideations, No Emotional Lability, No Hallucinations Endocrine: No Symptoms Hematologic/Lymphatic: No Symptoms Immunological/Allergic: No Symptoms All Other Systems: Reviewed and Negative - Nursing Vital Signs Nursing Vital Signs: Initial Vital Signs Temperature 97.4 F 05/09/19 23:35 Pulse Rate 64 05/09/19 23:35 Respiratory Rate 18 05/09/19 23:35 Blood Pressure 112/74 05/09/19 23:35 O2 Sat by Pulse Oximetry 98 05/09/19 23:35 Pain Scale Pain Intensity 0 - Physical Exam SpO2: 98 - Course Nursing assessment & vital signs reviewed: Yes Ordered Tests: Active Orders 24 hr Category Date Time Status EKG-ER Only STAT Care 05/09/19 23:59 Active Pulse Oximetry (ED) STAT Care 05/09/19 23:59 Active CHEST 1 VIEW (PORTABLE) Stat Exams 05/10/19 00:00 Taken ACETAMINOPHEN Stat Lab 05/09/19 23:59 Completed CBC W DIFF Stat Lab 05/09/19 23:59 Completed CMP Stat Lab 05/09/19 23:59 Completed ETHYL ALCOHOL Stat Lab 05/09/19 23:59 Completed HCG,QUALITATIVE URINE Stat Lab 05/10/19 01:48 Completed SALICYLATE Stat Lab 05/09/19 23:59 Completed UA W/RFX UR CULTURE Stat Lab 05/10/19 01:48 Completed Urine Triage Profile Stat Lab 05/10/19 01:48 Received Lab/Rad Data: Laboratory Result Diagrams 05/09/19 23:59 05/09/19 23:59 Laboratory Results 05/10/19 05/10/19 05/09/19 Range/Units 01:48 01:48 23:59 WBC (4.0-10.5) K/mm3 RBC (4.1-5.4) M/mm3 Hgb (12.0-16.0) gm/dl Hct (35-47) % MCV (78-100) fl MCH (26-32) pg MCHC (32-36) g/dl RDW (11.5-14.0) % Plt Count (150-450) K/mm3 MPV (6-9.5) fl Gran % (36.0-66.0) % Eos # (Auto) (0-0.5) Absolute Lymphs (auto) (1.0-4.6) Absolute Monos (auto) (0.0-1.3) Lymphocytes % (24.0-44.0) % Monocytes % (0.0-12.0) % Eosinophils % (0.00-5.0) % Basophils % (0.0-0.4) % Absolute Granulocytes (1.4-6.9) Basophils # (0-0.4) Sodium 140 (137-145) mmol/L Potassium 4.0 (3.5-5.1) mmol/L Chloride 106 (98-107) mmol/L Carbon Dioxide 29 (22-30) mmol/L Anion Gap 8.6 (5-15) MEQ/L BUN 16 (7-17) mg/dL Creatinine 0.80 (0.52-1.04) mg/dL Estimated GFR > 60.0 ML/MIN Glucose 95 (74-106) mg/dL Calcium 9.8 (8.4-10.2) mg/dL Total Bilirubin 0.60 (0.2-1.3) mg/dL AST 21 (14-36) U/L ALT 18 (0-35) U/L Alkaline Phosphatase 71 (38-126) U/L Serum Total Protein 7.3 (6.3-8.2) g/dL Albumin 4.3 (3.5-5.0) g/dL Urine Color YELLOW (YELLOW) Urine Appearance SLIGHTLY CLOUDY (CLEAR) Urine pH 5.0 (5-6) Ur Specific [place] 1.024 (1.005-1.025) Urine Protein NEGATIVE (Negative) Urine Ketones NEGATIVE (NEGATIVE) Urine Blood NEGATIVE (0-5) El/ul Urine Nitrite NEGATIVE (NEGATIVE) Urine Bilirubin NEGATIVE (NEGATIVE) Urine Urobilinogen 2 (0-1) mg/dL Ur Leukocyte Esterase TRACE (NEGATIVE) Urine WBC (Auto) 6-10 (0-5) /HPF Urine RBC (Auto) 0-2 (0-2) /HPF U Epithel Cells (Auto) RARE (FEW) /HPF Urine Bacteria (Auto) NONE (NEGATIVE) /HPF Urine Mucus (Auto) SLIGHT (NEGATIVE) /HPF Urine Culture Reflexed NO (NO) Urine Glucose NEGATIVE (NEGATIVE) mg/dL Urine HCG, Qual NEGATIVE (Negative) Salicylates < 1.0 L (2-20) mg/dL Acetaminophen < 10 L (10-30) ug/ml Ethyl Alcohol < 10 (0-10) mg/dL 05/09/19 Range/Units 23:59 WBC 8.0 (4.0-10.5) K/mm3 RBC 5.21 (4.1-5.4) M/mm3 Hgb 15.4 (12.0-16.0) gm/dl Hct 46.2 (35-47) % MCV 88.7 (78-100) fl MCH 29.6 (26-32) pg MCHC 33.3 (32-36) g/dl RDW 13.8 (11.5-14.0) % Plt Count 221 (150-450) K/mm3 MPV 11.0 H (6-9.5) fl Gran % 60.5 (36.0-66.0) % Eos # (Auto) 0.22 (0-0.5) Absolute Lymphs (auto) 2.15 (1.0-4.6) Absolute Monos (auto) 0.75 (0.0-1.3) Lymphocytes % 26.8 (24.0-44.0) % Monocytes % 9.4 (0.0-12.0) % Eosinophils % 2.7 (0.00-5.0) % Basophils % 0.6 (0.0-0.4) % Absolute Granulocytes 4.85 (1.4-6.9) Basophils # 0.05 (0-0.4) Sodium (137-145) mmol/L Potassium (3.5-5.1) mmol/L Chloride (98-107) mmol/L Carbon Dioxide (22-30) mmol/L Anion Gap (5-15) MEQ/L BUN (7-17) mg/dL Creatinine (0.52-1.04) mg/dL Estimated GFR ML/MIN Glucose (74-106) mg/dL Calcium (8.4-10.2) mg/dL Total Bilirubin (0.2-1.3) mg/dL AST (14-36) U/L ALT (0-35) U/L Alkaline Phosphatase (38-126) U/L Serum Total Protein (6.3-8.2) g/dL Albumin (3.5-5.0) g/dL Urine Color (YELLOW) Urine Appearance (CLEAR) Urine pH (5-6) Ur Specific [place] (1.005-1.025) Urine Protein (Negative) Urine Ketones (NEGATIVE) Urine Blood (0-5) El/ul Urine Nitrite (NEGATIVE) Urine Bilirubin (NEGATIVE) Urine Urobilinogen (0-1) mg/dL Ur Leukocyte Esterase (NEGATIVE) Urine WBC (Auto) (0-5) /HPF Urine RBC (Auto) (0-2) /HPF U Epithel Cells (Auto) (FEW) /HPF Urine Bacteria (Auto) (NEGATIVE) /HPF Urine Mucus (Auto) (NEGATIVE) /HPF Urine Culture Reflexed (NO) Urine Glucose (NEGATIVE) mg/dL Urine HCG, Qual (Negative) Salicylates (2-20) mg/dL Acetaminophen (10-30) ug/ml Ethyl Alcohol (0-10) mg/dL - Progress Progress: improved Progress Note: 05/10/19 02:14 cxr-no acute process Counseled pt/family regarding: lab results, diagnosis, need for follow-up, rad results - Departure Departure Disposition: Home Clinical Impression: Anxiety, UTI (urinary tract infection) Condition: Stable Critical Care Time: No Referrals: DOCTOR,NO FAMILY [Primary Care Provider] - Additional Instructions: drink plenty of fluids. take medications as prescribed. follow up with primary doctor for further management Prescriptions: Cephalexin Mh 500 mg [Keflex 500 mg] 500 mg PO TID #21 capsule
[2019-05-10 01:52] LABS: Appearance SLIGHTLY CLOUDY (CLEAR); Bilirubin NEGATIVE (NEGATIVE); Blood NEGATIVE Ery/ul (0-5); Epithelial Cells RARE /HPF (FEW); Glucose NEGATIVE (NEGATIVE); Ketones NEGATIVE (NEGATIVE); Leukocyte Esterase TRACE (NEGATIVE); Mucus SLIGHT /HPF (NEGATIVE); Nitrite NEGATIVE (NEGATIVE); Protein,Urine Dip NEGATIVE (Negative); RBC 0-2 /HPF (0-2); Specific Gravity 1.024 (1.005-1.025); Urobilinogen 2 mg/dL (0-1)
[2019-05-10 02:05] LABS: Amphetamine,Urine NEGATIVE (NEGATIVE); Barbiturate,Urine NEGATIVE (NEGATIVE); Benzodiazepine,Urine NEGATIVE (NEGATIVE); Cocaine,Urine NEGATIVE (NEGATIVE); Methadone,Urine NEGATIVE (NEGATIVE); Opiate,Urine NEGATIVE (NEGATIVE); PCP,Urine NEGATIVE (NEGATIVE); THC,Urine NEGATIVE (NEGATIVE)
[2019-05-10] MEDS ORDERED: KEFLEX 500 MG ONE (02:49)
[2019-05-10] MEDS: KEFLEX 500 MG PO ONE (02:55)
[2019-05-10 02:58] VITALS: BP 118/54; PULSE 70; O2SAT 97
--- NOTE | 2019-05-10 08:32 | XRAY ---
Indication: Chest pain. Comparison: September 30, 2018. Portable chest again demonstrates normal heart and lungs with a few incidental calcified granulomas. Bony thorax intact. No new/acute findings.
== END 2019-05-10 03:09 | disposition home or self-care (01) ==
LOC: ED 23:34
DX: F41.9 Anxiety disorder, unspecified (principal); N39.0 Urinary tract infection, site not specified
CPT/HCPCS: 36415; 71045; 80053; 80307; 81001; 84703; 85025; 93005; 94760; 99284; G0481; A9270-GY; G0480

== ENCOUNTER 2019-05-19 22:45 | Emergency (ER) | payer MEDICAID | END 2019-05-20 05:45 | disposition home or self-care (01) | LOC: ED 05-20 05:45 ==